=== PATIENT | male | born 1955 | race Caucasian/White ===

== ENCOUNTER 2017-02-03 15:34 | Inpatient (IN) ==
[2017-02-03] MEDS ORDERED: PATIENT'S OWN MED SUBQ SCH (18:15)
[2017-02-03 19:55] LABS: MANUAL DIFF NEEDED? NO
[2017-02-03 20:01] LABS: BASO% 0.4 % (0.0-0.8); HEMATOCRIT 39.3 % (42.0-52.0); LYMPH# 1.63 X1000 (1.2-3.4); MCH 29.1 PG (27-31); MCHC 33.1 g/dL (33-37); MCV 87.9 FL (81-99); MONO# 1.03 X1000 (0.11-0.59); MONO% 10.7 % (1.7-9.3); MPV 12.1 FL (7.4-10.4); NEUT% 70.9 % (42.2-75.2); PLT 262 X1000 (130-400); RBC 4.47 XMIL (4.7-6.1)
[2017-02-03 20:07] LABS: INR 1.02; PROTIME 10.7 Seconds (9.2-11.7)
[2017-02-03 20:15] LABS: AGAP 14; BUN 24 mg/dL (8-22); CALCIUM 9.5 mg/dL (8.8-10.2); CHLORIDE 97 mmol/L (98-107); COSMO 284; POTASSIUM 3.3 mmol/L (3.5-5.1); SODIUM 138 mmol/L (136-145); TCO2 27 mmol/L (25-35)
[2017-02-03 21:04] LABS: SED RATE 18 mm/hr (0-15)
[2017-02-03] MEDS: TUSSIONEX LIQUID PO SCH (22:28)
[2017-02-03] MEDS: SPORANOX PO SCH (22:28)
[2017-02-03 22:37] LABS: URINE MICRO REVIEW NEEDED? NO; URINE SOURCE VOIDED
[2017-02-03] MEDS: POTASSIUM CHLORIDE 20 MEQ/SWI 20 MEQ/100 ML IVPB IV SCH (22:37)
[2017-02-03] MEDS: NS 1,000 ML IV SCH (22:38)
[2017-02-03 22:40] LABS: BILIRUBIN URINE NEGATIVE (NEGATIVE); BLOOD URINE NEGATIVE (NEGATIVE); COLOR YELLOW; GLUCOSE URINE 150 mg/dL (NEGATIVE); LEUKOCYTES URINE NEGATIVE (NEGATIVE); NITRITE URINE NEGATIVE (NEGATIVE); PROTEIN URINE NEGATIVE (NEGATIVE); TURBIDITY URINE CLEAR (CLEAR); UROBILINOGEN URINE NORMAL (NORMAL)
[2017-02-03 22:41] LABS: UR EPITHELIAL CELLS <10 /HPF (<10); URINE BACTERIA NEGATIVE /HPF; URINE RBC <10 /HPF (<10); URINE WBC <10 /HPF (<10)
[2017-02-04] MEDS: POTASSIUM CHLORIDE 20 MEQ/SWI 20 MEQ/100 ML IVPB IV SCH (00:59)
--- NOTE | 2017-02-04 03:43 | HISTORY AND PHYSICAL ---
CHIEF COMPLAINT: High blood sugar, low-grade fever, cough. HISTORY OF PRESENT ILLNESS: He is a 52-year-old white gentleman, evaluated as an outpatient for the last 2 weeks. He has bilateral lung nodules and previous workup was negative for malignancy. Treated for 1 year with Sporanox. After stopping the medications, the patient had relapse of the lung nodules. He has some cough and low-grade fever. He was started back on Sporanox per b.i.d. The lung nodules on the right side were resolving, but, however, left mid lung lesion is increasing in size, close to 3 cm. Despite antifungal treatment, lesion is increasing. Basically admitted to the hospital for rule out malignancy. He also has insulin pump, blood sugars 400. He also has a low potassium. Basically, admitted to the hospital with IV fluids, control the diabetes, replace the potassium and get the lung biopsy in the morning. The patient has also consulted with Alton Chavez MD. 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 PAST SURGICAL HISTORY: None. MEDICATIONS: Lisinopril/hydrochlorothiazide 20/12.5 daily, gabapentin 300 daily , insulin pump, Sporanox 200 p.o. b.i.d., Tussionex as needed. ALLERGIES: Norvasc due to edema. SOCIAL HISTORY: Three children, , retired from [employer], lives in [place]. No smoking. No alcohol. FAMILY HISTORY: Father of colon cancer at 73. Mom of old age. HEALTH MAINTENANCE: Physical exam April 2016. Patient refusing vaccinations and colonoscopy. REVIEW OF SYSTEMS: HEENT: No headache. No vision problem. No earache. No sore throat. Neck: No goiter. No lymphadenopathy. No bruit. Cardiopulmonary: Coughing. No chest pain, shortness of breath, PND, orthopnea. GI: No nausea, vomiting, abdominal pain. : No history of hesitancy, frequency. No swelling of legs. No joint pains. Neurologic: No focal symptoms or weakness or seizures. 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 PHYSICAL EXAMINATION: VITAL SIGNS: He is afebrile. Vitals are stable. 6 feet 2, 197 pounds. HEENT: Exam within normal limits. NECK: Supple. No lymphadenopathy. No goiter. No bruits over the carotids. CHEST: Clear to auscultation. HEART: Sounds are regular. ABDOMEN: Belly is soft, nontender. Good bowel sounds. No masses palpable. RECTAL: Deferred. EXTREMITIES: Pulses are palpable. Decreased sensory exam. No signs of gangrene. NEUROLOGIC: No obvious focal deficits. INVESTIGATIONS: CBC: White cell count 9.6, hematocrit 39, platelets 262,000. PT/INR is normal. SMA7: Sodium 138, potassium 3.3, chloride 97, BUN 24, creatinine 0.9, glucose 167, CRP was 13. Chest x-ray: Increasing of left lung nodule. Please see the CT of the chest which was done as an outpatient last week. ASSESSMENT AND PLAN: 1. A 62-year-old white male admitted to the hospital with a cough, fever and worsening of the left lung nodule despite antifungal treatment. Plan is rule out malignancy. Computed tomography lung biopsy. Dr. Alton Chavez consult. 2. Type 1 diabetes, on insulin pump. 3. Hypokalemia. Replace the potassium. 4. Reconcile home medications. I discussed with the patient and the family the plan of care and we will follow up. cc: John Jennings MD MTDD
[2017-02-04] MEDS ORDERED: D50W SYRINGE IV ONE (05:31)
--- NOTE | 2017-02-04 06:29 | Diag Imaging Result Document ---
PROCEDURE NAME: CHEST-2 VIEWS - 02/03/2017 FRONTAL AND LATERAL CHEST, 2 VIEWS: FINDINGS: There is a mass in the left lower lobe. The heart is not enlarged. The pulmonary vessels are small. No pleural effusions. Apparent scarring in the mid right lung. IMPRESSION: Left lower lobe mass.
[2017-02-04] MEDS ORDERED: PRINZIDE 20/12.5MG PO SCH (09:00)
[2017-02-04] MEDS ORDERED: NEURONTIN PO SCH (09:00)
--- NOTE | 2017-02-04 10:06 | PROGRESS NOTE ---
DATE: 02/04/2017 SUBJECTIVE: The complains of cough. He has been on NPO and IV fluids. REVIEW OF SYSTEMS: None reported. PHYSICAL EXAMINATION: Vital Signs: Stable. HEENT Exam: Within normal limits. Neck: Supple. No lymphadenopathy. Chest: Clear. Heart: Sounds are regular. Rest of the exam is benign. INVESTIGATIONS: CBC, white cell count 9.6, hematocrit 39, platelets 262,000. INR is normal. Blood sugar 69. ASSESSMENT AND PLAN: 1. Left lung mass worsening despite antifungal treatment. Discussed with Alton Chavez MD, as well as Dr. Gaspar who is planning to do CT-guided biopsy today, and based on that, further recommendations will be followed. 2. Continue present medical therapy. Level of documentation is 25 minutes. cc: John Jennings MD
[2017-02-04] MEDS: TUSSIONEX LIQUID PO SCH (11:27)
[2017-02-04] MEDS: NS 1,000 ML IV SCH (11:28)
[2017-02-04] MEDS: SPORANOX PO SCH (11:28)
--- NOTE | 2017-02-04 12:39 | Diag Imaging Result Document ---
PROCEDURE NAME: CHEST-2 VIEWS - 02/04/2017 INSPIRATORY AND EXPIRATORY FRONTAL RADIOGRAPH OF THE CHEST, 2 VIEWS: COMPARISON: 02/03/2017. FINDINGS: There is no evidence of pneumothorax status post left lung biopsy. The known left mid lung zone mass is stable. There are no new consolidations. Cardiac silhouette is stable. IMPRESSION: No evidence of pneumothorax status post left lung biopsy; an otherwise stable chest.
--- NOTE | 2017-02-04 13:25 | Diag Imaging Result Document ---
PROCEDURE NAME: CT GUIDED BIOPSY LUNG - 02/04/2017 CT-GUIDED LEFT LUNG BIOPSY: COMPARISON: CT chest dated 02/01/2017. FINDINGS: Risks, benefits, and alternatives were discussed with the patient, and informed consent was obtained. The patient was prepped and draped in sterile fashion and local anesthesia was achieved with 1% lidocaine solution. Using CT guidance, a coaxial biopsy needle system was used to obtain four 1.3 cm core biopsies of the known mass in the superior aspect of the left lower lobe. There were no known complications. A chest radiograph is to follow. IMPRESSION: Technically successful CT-guided left lung biopsy.
--- NOTE | 2017-02-04 14:16 | CONSULTATION ---
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 He was treated with Sporanox, and nodules on the right side of his lung have cleared. However there is an increasing mass on the left lung which has been enlarging despite the patient being on itraconazole. RECOMMENDATIONS: I agree with decision to perform a percutaneous biopsy of the mass. DISCUSSION/PRESENT ILLNESS: The patient previously had been worked up for the etiology of lung nodules. One of the lung nodules was biopsied and it showed necrotizing granulomatous inflammation. No organisms were seen on special stain and all serologic and antigen tests for fungi were negative. The patient however did respond well to itraconazole. The patient stopped his itraconazole for a while and then restarted it. The lesions that were previously in the right lung appeared to have cleared but the left lung has developed an increasing lung mass which is to be biopsied today. As far as symptoms go, the patient mainly is having had dyspnea on exertion. He is not coughing much. He has not had any fever or chills. In the past month he has lost 7 pounds. The patient's CBC shows a white count of 9600, hemoglobin 13, and platelet count 262,000. Creatinine 0.9. GFR is greater than 60. Urinalysis showed no white cells or bacteria. Urine culture is pending. PAST MEDICAL HISTORY/REVIEW OF SYSTEMS: Eyes and ears: The patient has blurred vision in the right eye. This has been a long-term problem for him. His hearing is okay. Neck: No stiffness. Respiratory: As mentioned above, the patient has an increasing left lung mass in size. He has dyspnea on exertion. He is not coughing and he has not brought up any blood- tinged sputum. Cardiac: No chest pain or palpitations. GI: No nausea, vomiting, or diarrhea. : The patient does have difficulty passing his urine. This has been a long-term problem. Neurologic: No motor or sensory loss. Endocrine: The patient does have diabetes but not thyroid disease. Infectious disease: Positive for lung nodules. Please see the discussion above about them. Negative for UTI. PREVIOUS HOSPITALIZATIONS AND OPERATIONS: Thorascopic lung biopsy and fine needle lung aspirate. MEDICAL DISEASES: Diabetes mellitus, hypertension. 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 FAMILY HISTORY: Positive for diabetes mellitus, hypertension and cancer. SOCIAL HISTORY: [place] He is . He has dogs for pets. He is retired from working at [employer]. The patient stopped smoking in 2008. He does not drink alcoholic beverages or abuse drugs. PHYSICAL EXAMINATION: Vital Signs: Temperature is 98.1 degrees, pulse 59, respiration is 18, blood pressure 149/68. General: This is a fairly healthy-appearing, middle- aged male who is in no acute distress. Head, eyes, ears, nose, and throat: He can hear my spoken words and see near objects. In the mouth there were no white patches. Neck: No meningismus. Lungs: Clear to auscultation. Cardiovascular: Regular heart rate. Abdomen: Soft, without masses or tenderness. Extremities: No edema. The peripheral pulses are palpable. Neurologic: Patient is awake. He can move his extremities. There is no tremor. His sensation is intact to touch. His memory as regarding his medical history is slightly diminished. Integument: No rash noted. Thank you for the consult. cc: MD John Dubon MD MTDD
[2017-02-04 14:17] VITALS: BP 123/72
== END 2017-02-04 18:25 | disposition home or self-care (01) ==
LOC: DIRADM 15:34 → 3N 16:27
PROVIDERS: ADMIT Internal Medicine; ATTEND Internal Medicine

== ENCOUNTER 2019-11-06 15:13 | Inpatient (IN) ==
[2019-11-06] MEDS ORDERED: NS 1,000 ML IV ONE (15:47)
[2019-11-06] MEDS ORDERED: HUMULIN R IV ONE ×2 (15:47→18:29)
[2019-11-06] MEDS ORDERED: D50W SYRINGE IV PRN ×4 (15:47→18:29)
[2019-11-06] MEDS ORDERED: MAGNESIUM SULFATE 2 GM/S.W.I. 2 GM/50 ML IVPB IV PRN ×2 (15:47→17:23)
[2019-11-06] MEDS ORDERED: SODIUM PHOSPHATE 30 MMOL in D5W 250 ML IV PRN ×2 (15:47→17:23)
--- NOTE | 2019-11-06 16:05 | PROVIDER DOCUMENTATION ---
HPI-General Adult - General Chief Complaint: DKA ALERT Stated Complaint: DIABETIC Time Seen by Provider: 11/06/19 15:38 Source: patient Allergies/Adverse Reactions: Patient Allergies Allergy/AdvReac Type Severity Reaction Status Date / Time No Known Allergies Allergy Verified 11/06/19 15:43 Home Medications: Home Medication List Medication Instructions Recorded Confirmed Last Taken Type Gabapentin 300 mg PO DAILY 05/06/14 08/22/19 08/22/19 00:00 History Lisinopril/Hydrochlorothiazide 1 each PO DAILY 05/06/14 08/22/19 08/22/19 00:00 History [Lisinopril-Hctz 20-12.5 mg Tab] Subcutaneous Insulin Pump [Insulin 1 each MC DIRECTED 05/06/14 08/22/19 08/22/19 00:00 History Pump] Itraconazole [Sporanox] 200 mg PO BID #180 capsule 09/10/15 08/22/19 08/22/19 00:00 Rx Chlorthalidone 50 mg PO DAILY 05/16/19 08/22/19 08/22/19 00:00 History Potassium Chloride [Klor-Con 10] 20 meq PO BID 05/16/19 08/22/19 08/22/19 00:00 History - History of Present Illness -Gen Adult Nature of Presenting Problems: 64 yo M, hx of DM, HTN, presents with 4-5 oliva hx of general malaise, elevated and uncontrollable BG in the setting of a steroid shot and unresponsive to his curent insulin regime, as well as recent UTI and URI. Pt received a steroid shot in the left eye on Tuesday; he apparently was not warned of the effects on his BG; he began to experience elevations in BG that evening, reaching a high of 416 when he is typically 127 or thereabouts post-prandial. Pt also was dx with URI and UTI, and has been more listless, with poor appetite, nausea, and vomiting x 2 episodes, contents of which were dark. Review of Systems - Adult - REVIEW OF SYSTEMS - ADULT Constitutional: reports: see HPI Eyes: reports: no symptoms reported Ears, Nose, Mouth & Throat: reports: no symptoms reported Cardiovascular: reports: no symptoms reported Respiratory: reports: see HPI Gastrointestinal: reports: see HPI Genitourinary: reports: no symptoms reported Musculoskeletal: reports: no symptoms reported Integumentary: reports: no symptoms reported Neurological: reports: no symptoms reported Psychiatric: reports: no symptoms reported Endocrine: reports: no symptoms reported Past History - Adult - PAST MEDICAL HISTORY-ADULT Review of Records: reports: Nursing Assessment Review Major Childhood Illnesses: reports: denies history Cardiovascular: reports: HTN Endocrine/Immune: reports: Diabetes Diabetes controlled by:: Insulin Dependent - FAMILY HISTORY Family History: reviewed, not pertinent - SOCIAL HISTORY Smoking: non-smoker Living Situation: family Physical Exam-General - PHYSICAL EXAM-ADULT Initial Vital Signs Reviewed: Yes - CONSTITUTIONAL General Appearance: alert, mild distress - EYES Eyes: PERRL/EOMI - HEAD, EARS, NOSE, MOUTH & THROAT HENMT: normocephalic/atraumatic, moist mucous membranes - RESPIRATORY Respiratory: chest non-tender, lungs clear, normal breath sounds - CARDIOVASCULAR Cardiovascular: regular rate, rhythm - GASTROINTESTINAL (ABDOMEN) Abdominal Exam: normal bowel sounds, non tender, soft - SKIN Integumentary: normal color, normal turgor, warm/dry - NEUROLOGIC Neurologic: no motor/sensory deficits. negative: facial droop, focal weakness - PSYCHIATRIC Psych/Mental Status: normal mood/affect, oriented x 3 Progress - PLAN OF CARE/RESULTS Progress/Plan/Lab Results: Vital Signs - 8 hr 11/06/19 15:28 Temperature 97.5 F L Pulse Rate 58 L Respiratory Rate 19 Blood Pressure 162/63 O2 Sat by Pulse Oximetry 99 Laboratory Results - last 24 hr 11/06/19 15:33 POC Glucose 449 H D Orders Category Date Time Status Cardiac Monitoring DIRECTED Care 11/06/19 15:44 Active Cardiac Monitoring DIRECTED Care 11/06/19 15:47 Ordered ED: Urine Bedside NOW Care 11/06/19 15:47 Ordered FSBS/Accucheck Result Q15M Care 11/06/19 15:47 Ordered FSBS/Accucheck Result Q1H Care 11/06/19 15:44 Active FSBS/Accucheck Result Q1H Care 11/06/19 15:47 Ordered Hypoglycemia/FSBS <50 or Range of 50-70 PRN Care 11/06/19 15:47 Ordered Notify Physician ORDERED Care 11/06/19 15:47 Ordered Saline Loc DIRECTED Care 11/06/19 15:47 Ordered Saline Loc NOW Care 11/06/19 15:44 Active Saline Loc NOW Care 11/06/19 15:47 Ordered Vital Signs Order Q1H Care 11/06/19 15:44 Active Vital Signs Order Q1H Care 11/06/19 15:47 Ordered ABG [RESP] Routine Lab 11/06/19 15:44 Ordered ACETONE SERUM [CHEM] Stat Lab 11/06/19 15:44 Uncollected CBC WITH NO DIFF [HEME] Stat Lab 11/06/19 15:44 Uncollected CK PROFILE [SP CHEM] Stat Lab 11/06/19 15:44 Uncollected COMPREHENSIVE METABOLIC PANEL [CHEM] Stat Lab 11/06/19 15:44 Uncollected LACTATE, PLASMA [CHEM] Stat Lab 11/06/19 15:44 Uncollected MAGNESIUM [CHEM] Stat Lab 11/06/19 15:44 Uncollected PHOSPHORUS [CHEM] Stat Lab 11/06/19 15:44 Uncollected TROPONIN T HIGH SENSITIVITY Stat Lab 11/06/19 15:44 Uncollected URINALYSIS [URINALYSIS] Stat Lab 11/06/19 15:44 Uncollected URINE DRUG SCREEN Stat Lab 11/06/19 15:44 Uncollected 0.9% Sodium Chloride Inj [Ns] 1,000 ml Med 11/06/19 16:00 Ordered IV 500 mls/hr Dextrose 50% Syringe [D50w Syringe] Med 11/06/19 15:47 Ordered 25 ml IV PRN PRN Dextrose 50% Syringe [D50w Syringe] Med 11/06/19 15:47 Ordered 50 ml IV PRN PRN Insulin Human Regular [Humulin R] Med 11/06/19 15:47 Once 7.7 unit IV ONCE ONE Magnesium Sulfate 2 gm/S.w.i. Med 11/06/19 15:47 Ordered 2 gm in 50 ml IV ONCE PRN Ns 1000 ml IV Bolus X1 Med 11/06/19 15:47 Ordered 0.9% Sodium Chloride Inj [Ns] 1,000 ml IV 999 mls/hr Sodium Phosphate 30 mmol Med 11/06/19 15:47 Ordered Dextrose 5%-Water Inj [D5w] 250 ml IV ONCE PRN Hypoglycemia Stat Oth 11/06/19 15:47 Ordered EKG [EKG] Routine Ther 11/06/19 15:44 Ordered EKG [EKG] Routine Ther 11/06/19 15:47 Ordered Pt in DKA - with AG 32, lactate 3.8, Glu 463, high sensitivity troponin 223 (no accompanying EKG changes) - spoke with hospitalist RN [id number] - pt to be admitted for further management. Pt and family made aware. Result Diagrams: 11/06/19 15:54 11/06/19 15:54 - EKG 1 Time of EKG reading by physician:: 16:15 EKG Read and Signed by:: Cesia Wu EKG Interpretation (*Must complete 3 of following elements*): Abnormal Rate: 62 Rhythm: sinus [place]: normal QRS: normal MA Interval: normal ST Wave: non-specific ST changes Prior EKG Comparison: changes noted (in comparison to 2014 - possible left atrial enlargement, ST and T wave abnormality) Comments: possible left atrial enlargement - CONSULTS/PCP/HOSPITALIST Notification #1 *Consult/PCP/Hospitalist*: Leana Time Discussed: 17:00 Consult Disposition: Admit Departure - Departure Date of Disposition Decision: 11/06/19 Time of Disposition Decision: 17:20 DIAGNOSIS: DKA, type 1 Qualifiers: Diabetes mellitus complication detail: without coma Qualified Code(s): E10.10 - Type 1 diabetes mellitus with ketoacidosis without coma Disposition: ADMITTED INPATIENT 09 Certified Medical Emergency: Emergent Condition: Stable Referrals and Follow-Ups: None,PCP [Primary Care Provider] - - Critical Care Note This patient required my direct & personal management of CC.: No Attestation - Physician/ TEQUILA Attestation Patient care was provided by Advanced Practice Provider:: No The physician spent face to face time with patient:: Yes Advanced Practice Provider documentation review:: Supervising physician onsite and consulted in the evaluation and care of this patient. The physician did have a face to face encounter with the patient.
[2019-11-06 16:08] LABS: ALLEN TEST YES; BE -9.8 mmoll (-3.0-3.0); BLOOD TYPE ARTERIAL; HCO3-(ACT) 17.2 mmoll (20.0-26.0); METHB 1.6 % (0.0-1.5); O2(CT) 19.3 mL/dL (15.0-23.0); PCO2(98.6) 31 mmHg (35-45); PO2(98.6) 98 mmHg (60-100); SAMPLE BLOOD; SAO2 98.5 % (95.0-100.0); THB 14.4 g/dL (11.5-17.4)
[2019-11-06 16:09] LABS: MODALITY ROOM AIR
--- NOTE | 2019-11-06 16:19 | EKG Report ---
Test Performed on : 11/06/2019 4:15:10 PM Test Reason : Hyperglycemia Blood Pressure : / mmHG Vent. Rate : 062 BPM Atrial Rate : 062 BPM P-R Int : 166 ms QRS Dur : 080 ms QT Int : 428 ms P-R-T Axes : 079 020 150 degrees QTc Int : 434 ms Normal sinus rhythm. Possible Left atrial enlargement ST & T wave abnormality, consider lateral ischemia Abnormal ECG When compared with ECG of 06-MAY-2014 18:50, Nonspecific T wave abnormality now evident in Inferior leads T wave inversion now evident in Anterolateral leads Unconfirmed Result
[2019-11-06 16:27] LABS: HEMATOCRIT 45.9 % (42.0-52.0); HEMOGLOBIN 14.9 g/dL (14.0-18.0); MCH 28.8 PG (27-31); MCHC 32.5 g/dL (33-37); MCV 88.8 FL (81-99); MPV 14.3 FL (7.4-10.4); RBC 5.17 XMIL (4.7-6.1); RDW 16.3 % (11.5-14.5); WBC 10.57 X1000 (4.8-10.8)
[2019-11-06 16:33] LABS: ACETONE SERUM MODERATE (NEGATIVE)
[2019-11-06] MEDS ORDERED: ASPIRIN PO ONE (16:41)
[2019-11-06 16:51] LABS: AGAP 32; ALB/GLOB RATIO 1.4; ALBUMIN 4.2 g/dL (3.5-5.0); ALKALINE PHOSPHATASE 86 U/L (32-122); BUN 46 mg/dL (8-22); CALCIUM 9.8 mg/dL (8.8-10.2); CHLORIDE 91 mmol/L (98-107); CK PROFILE 195 U/L (24-204); COSMO 310; CREATININE 1.5 mg/dL (0.7-1.2); ESTIMATED GFR 47; GOT 25 U/L (10-34); GPT 22 U/L (10-44); MAGNESIUM 2.6 mg/dL (1.5-2.7); PHOSPHORUS 3.7 mg/dL (2.7-4.5); POTASSIUM 3.8 mmol/L (3.5-5.1); SODIUM 139 mmol/L (136-145); TCO2 16 mmol/L (25-35); TOTAL PROTEIN 7.1 g/dL (6.3-8.3)
[2019-11-06 16:55] LABS: GLUCOSE 463 mg/dL (70-104)
[2019-11-06] MEDS ORDERED: LR 1,000 ML IV ONE (16:59)
[2019-11-06 17:14] LABS: URINE SOURCE CLEAN CATCH
[2019-11-06 17:19] LABS: BILIRUBIN URINE NEGATIVE (NEGATIVE); BLOOD URINE TRACE (NEGATIVE); COLOR YELLOW; GLUCOSE URINE >1000 mg/dL (NEGATIVE); KETONE URINE 150 mg/dL (NEGATIVE); LEUKOCYTES URINE NEGATIVE (NEGATIVE); NITRITE URINE NEGATIVE (NEGATIVE); PH URINE 5.5; PROTEIN URINE TRACE mg/dL (NEGATIVE); SP GRAVITY URINE 1.024; TURBIDITY URINE CLEAR (CLEAR); UR EPITHELIAL CELLS <10 /HPF (<10); URINE BACTERIA NEGATIVE /HPF; URINE RBC <10 /HPF (<10); URINE WBC <10 /HPF (<10); UROBILINOGEN URINE NORMAL (NORMAL)
[2019-11-06] MEDS ORDERED: POTASSIUM CHLORIDE 20 MEQ/SWI 20 MEQ/100 ML IVPB IV PRN (17:23)
[2019-11-06] MEDS ORDERED: SODIUM BICARBONATE 8.4% 100 MEQ in STERILE WATER INJ. 500 ML IV PRN (17:23)
[2019-11-06] MEDS ORDERED: TYLENOL PO PRN (17:23)
[2019-11-06] MEDS ORDERED: POTASSIUM CHLORIDE 40 MEQ/SWI 40 MEQ/100 ML IVPB IV PRN (17:23)
[2019-11-06] MEDS ORDERED: ZOFRAN IV PRN (17:23)
[2019-11-06] MEDS ORDERED: D5 NS 1,000 ML IV PRN (17:23)
[2019-11-06] MEDS ORDERED: HUMULIN R 100 UNIT in NS 100 ML IV SCH ×2 (17:30→18:30)
[2019-11-06] MEDS ORDERED: SODIUM CHLORIDE 0.9% INJ SCH (17:30)
[2019-11-06 17:35] LABS: UR AMPHETAMINES QUAL NONE DETECTED (NONE DETECT); UR BARBITUATES QUAL NONE DETECTED (NONE DETECT); UR BENZODIAZEPIN QUAL NONE DETECTED (NONE DETECT); UR CANNABINOIDS QUAL NONE DETECTED (NONE DETECT); UR COCAINE QUAL NONE DETECTED (NONE DETECT); UR METHADONE QUAL NONE DETECTED (NONE DETECT); UR OPIATES QUAL NONE DETECTED (NONE DETECT); UR OXYCODONE QUAL NONE DETECTED (NONE DETECT); UR PCP QUAL NONE DETECTED (NONE DETECT)
[2019-11-06] MEDS ORDERED: APRESOLINE IV PRN (18:02)
--- NOTE | 2019-11-06 18:10 | Diag Imaging Result Doc PS360 ---
CHEST-PORTABLE - 11/06/2019 INDICATION: SOB COMPARISON: 08/22/2019 FINDINGS: Stable extensive surgical suture lines in the right lung. Lung volumes are much lower. Grossly stable nodular density in the right lung base. No infiltrates or edema. No pneumothorax or pleural effusion. Heart size is top normal. IMPRESSION: Lower lung volumes, otherwise no change from prior. Electronically signed by Jose L Anand 11/06/2019 6:08 PM
[2019-11-06] MEDS: NS 1,000 ML IV SCH ×2 (18:11→22:40)
[2019-11-06] MEDS ORDERED: POTASSIUM CHLORIDE 20% LIQUID PO PRN (18:29)
[2019-11-06] MEDS: POTASSIUM CHLORIDE 10% LIQUID PO PRN ×2 (18:40→23:14)
[2019-11-06] MEDS: APRESOLINE PO SCH (20:20)
[2019-11-06] MEDS: MAXIPIME 1 GM in NS 50 ML IV SCH (20:20)
[2019-11-06] MEDS: NORVASC PO SCH (20:20)
[2019-11-06 21:08] LABS: CALCIUM 9.2 mg/dL (8.8-10.2); CREATININE 1.3 mg/dL (0.7-1.2); MAGNESIUM 2.4 mg/dL (1.5-2.7); PHOSPHORUS 1.7 mg/dL (2.7-4.5); POTASSIUM 3.8 mmol/L (3.5-5.1)
--- NOTE | 2019-11-06 22:53 | HISTORY AND PHYSICAL ---
THE PATIENT'S HOSPICE OFFICE COORDINATOR: Dr. Willie Stephenson in [place]. CHIEF COMPLAINT: "I have been feeling sick since Tuesday after I received a steroid injection to my left eye." HISTORY OF PRESENT ILLNESS: Mr. Villalobos is a 64-year-old male with a history of insulin-dependent diabetes mellitus on an insulin pump, history of histoplasmosis and hypertension who presented to the ER today with a chief complaint of increasing shortness of breath, persistent nausea and vomiting and a poor appetite, as well as markedly elevated blood sugars. The patient reports that he saw his bsw on Tuesday at which time he received a steroid injection to his left eye. The patient states that as soon as he left the eye doctor appointment, he started to feel bad. He reports that he started suffering from upper respiratory symptoms to include runny nose, cough and shortness of breath. He said that was then followed by persistent nausea and vomiting and a poor appetite as well as low energy. The patient received a prescription for some oral antibiotic on November 03, which he started taking; however, his symptoms did not improve. The patient's blood sugars were as high as 460 at home. Upon arrival to the ER today, the patient was noted to be in DKA with an anion gap of 32, as well as moderate acetone. The patient was immediately started on aggressive IV fluid hydration and the diabetic ketoacidosis protocol was ordered. PAST MEDICAL HISTORY: 1. 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 Insulin-dependent diabetes mellitus on an insulin pump. 3. Hypertension. 4. BPH. 5. Hyperlipidemia. PAST SURGICAL HISTORY: None. FAMILY HISTORY: Reviewed and noncontributory. SOCIAL HISTORY: The patient denies any tobacco, alcohol or illicit drug use. The patient is and lives at home with his family. ALLERGIES: No known drug allergies. HOME MEDICATIONS: 1. Gabapentin 300 mg oral at bedtime. 2. Humalog via the insulin pump. 3. Hydralazine 50 mg oral twice a day. 4. Itraconazole 100 mg daily. REVIEW OF SYSTEMS: A 12-point review of systems has been performed. Please refer to the history of present illness for pertinent positives and negatives. PHYSICAL EXAMINATION: VITAL SIGNS: Temperature 98.6 degrees, blood pressure 173/68, heart rate 61, respirations 18, O2 saturations 100% on room air. GENERAL: This is a chronically ill-appearing elderly male lying on the stretcher in no acute distress. HEART: S1, S2. Normal. Bradycardic. SKIN: No rashes, no lesions. Normal capillary refill. HEENT: Normocephalic. PERRLA, EOMI. Oral mucosa is moist. Trachea is midline. NECK: Supple. No JVD. No lymphadenopathy. HEART: S1, S2 normal. Bradycardic. LUNGS: Equal air entry bilaterally. No wheezing. No rales. No rhonchi. ABDOMEN: Positive bowel sounds. Soft, nontender, nondistended. EXTREMITIES: No edema, no cyanosis, no calf tenderness. NEUROLOGIC: The patient is alert and oriented x4. No focal neurologic deficits noted. Cranial nerves 2-12 intact. LABS: White blood cell count 10, hemoglobin 14, hematocrit 45, platelets 274,000. ABG pH of 7.3, pCO2 31, PO2 98, bicarb 17. Sodium 139, potassium 3.8, chloride 91, CO2 16, BUN 46, creatinine 1.5, and anion gap of 32. Blood glucose 463. Phosphorus 3.7. Troponin 223. Lactate 3.8. Chest x-ray shows nodular density in the right lung base. ASSESSMENT AND PLAN: 1. Diabetic ketoacidosis. The patient has been started on diabetic ketoacidosis protocol to include IV fluids as well as an insulin drip. We will monitor the patient's laboratory studies every 4 hours until the anion gap has closed. The patient will be allowed to have ice chips. He will be NPO. 2. Elevated troponin. The patient denies having any chest pain. We will trend out the cardiac enzymes and do repeat electrocardiograms. We will also order an echocardiogram to be done tomorrow. The patient did receive aspirin. 3. Upper respiratory tract infection. Continue on antibiotic therapy. 4. Histoplasmosis. Aware. Continue on itraconazole. 5. Uncontrolled hypertension. We will adjust the patient's antihypertensive regimen. 6. Gastrointestinal prophylaxis. The patient is on IV Protonix. 7. Deep vein thrombosis prophylaxis. We will start the patient on Lovenox. cc: MD MAX Krause
[2019-11-06 22:57] LABS: CALCIUM 9.1 mg/dL (8.8-10.2); CREATININE 1.3 mg/dL (0.7-1.2); MAGNESIUM 2.3 mg/dL (1.5-2.7); PHOSPHORUS 1.2 mg/dL (2.7-4.5); POTASSIUM 3.6 mmol/L (3.5-5.1)
[2019-11-07] MEDS: NS 1,000 ML IV SCH ×4 (00:45→17:44)
[2019-11-07 02:29] LABS: AGAP 13; BUN 38 mg/dL (8-22); CALCIUM 8.9 mg/dL (8.8-10.2); CHLORIDE 107 mmol/L (98-107); COSMO 297; CREATININE 1.1 mg/dL (0.7-1.2); ESTIMATED GFR > 60; GLUCOSE 159 mg/dL (70-104); MAGNESIUM 2.2 mg/dL (1.5-2.7); PHOSPHORUS 1.1 mg/dL (2.7-4.5); POTASSIUM 2.9 mmol/L (3.5-5.1); SODIUM 143 mmol/L (136-145); TCO2 23 mmol/L (25-35)
[2019-11-07 05:04] LABS: ALLEN TEST YES; BE 2.9 mmoll (-3.0-3.0); BLOOD TYPE ARTERIAL; HCO3-(ACT) 27.1 mmoll (20.0-26.0); PCO2(98.6) 43 mmHg (35-45); PO2(98.6) 70 mmHg (60-100); SAMPLE BLOOD; pH(98.6) 7.42 (7.35-7.45)
[2019-11-07 05:07] LABS: MODALITY ROOM AIR
[2019-11-07] MEDS: PROTONIX IV SCH (06:16)
[2019-11-07 06:23] LABS: BASO# 0.05 X1000 (0.0-0.2); BASO% 0.6 % (0.0-0.8); EOS# 0.05 X1000 (0.0-0.7); EOS% 0.6 % (0.0-10.0); HEMATOCRIT 38.6 % (42.0-52.0); HEMOGLOBIN 12.6 g/dL (14.0-18.0); LYMPH# 1.42 X1000 (1.2-3.4); LYMPH% 16.5 % (20.5-51.1); MCH 28.4 PG (27-31); MCHC 32.6 g/dL (33-37); MCV 86.9 FL (81-99); MONO# 1.02 X1000 (0.11-0.59); MONO% 11.9 % (1.7-9.3); NEUT# 6.05 X1000 (1.4-6.5); NEUT% 70.4 % (42.2-75.2); PLT 224 X1000 (130-400); RBC 4.44 XMIL (4.7-6.1); RDW 15.3 % (11.5-14.5); WBC 8.59 X1000 (4.8-10.8)
[2019-11-07 06:34] LABS: AGAP 12; BUN 36 mg/dL (8-22); CALCIUM 8.9 mg/dL (8.8-10.2); CHLORIDE 107 mmol/L (98-107); COSMO 300; ESTIMATED GFR > 60; GLUCOSE 146 mg/dL (70-104); MAGNESIUM 2.2 mg/dL (1.5-2.7); PHOSPHORUS 1.3 mg/dL (2.7-4.5); SODIUM 145 mmol/L (136-145); TCO2 26 mmol/L (25-35)
[2019-11-07] MEDS ORDERED: LEVEMIR SUBQ ONE (06:39)
[2019-11-07] MEDS ORDERED: POTASSIUM PHOSPHATE 40 MMOL in NS 250 ML IV ONE (07:15)
[2019-11-07] MEDS: APRESOLINE PO SCH ×2 (07:59→21:59)
[2019-11-07] MEDS: MAXIPIME 1 GM in NS 50 ML IV SCH ×2 (07:59→21:59)
[2019-11-07] MEDS: NORVASC PO SCH ×2 (07:59→21:57)
[2019-11-07] MEDS: HUMULIN R SUBQ SCH ×5 (08:00→21:59)
[2019-11-07] MEDS: ASPIRIN PO SCH (08:00)
[2019-11-07] MEDS: PRINIVIL PO SCH (08:13)
--- NOTE | 2019-11-07 08:16 | EKG Report ---
Test Performed on : 11/07/2019 06:11:30 AM Test Reason : elevated troponin Blood Pressure : / mmHG Vent. Rate : 052 BPM Atrial Rate : 101 BPM P-R Int : 154 ms QRS Dur : 084 ms QT Int : 460 ms P-R-T Axes : 058 019 249 degrees QTc Int : 427 ms Critical Test Result: AV Block Sinus tachycardia. with 2nd degree AV block. with 2:[address] & T wave abnormality, consider anterolateral ischemia Abnormal ECG When compared with ECG of 06-NOV-2019 16:15, (Unconfirmed) Sinus rhythm. is now with 2nd degree AV block. Confirmed by Feliberto CASTILLO, Piter Lanza ([id number]) on 11/08/2019 2:33:41 PM
[2019-11-07] MEDS ORDERED: LOVENOX SUBQ SCH ×2 (09:00→21:00)
[2019-11-07] MEDS ORDERED: LOPRESSOR PO SCH (09:00)
[2019-11-07] MEDS ORDERED: LOVENOX SUBQ ONE (10:15)
--- NOTE | 2019-11-07 11:01 | CARDIOLOGY CONSULTATION ---
DATE: 11/07/2019 REASON FOR CONSULTATION: Cardiology was consulted for non-Q-wave myocardial infarction. HISTORY OF PRESENT ILLNESS: Mr. Villalobos is a 64-year-old gentleman with history of insulin-dependent diabetes on insulin pump, has history of histoplasmosis and had diabetic retinopathy, underwent a steroid shot last Tuesday by Dr. Briones who is his retina specialist. He has been having fatigue and weakness, complained of having chest discomfort and palpitations and shortness of breath. He also noted his blood sugars were elevated after his steroid injection, had nausea and vomiting as well associated with these symptoms. Came to the emergency room, was admitted. His admission electrocardiogram revealed normal sinus rhythm with nonspecific ST-T changes in the lateral leads. He describes his chest pain as tightness associated with the palpitations. No radiation to the back or down the arms. However, his states that he had at times complained of some upper back pain also. There is no history of dizziness or syncope. The patient was admitted. His blood sugar was 460 upon arrival in the emergency room, noted to be in DKA with an anion gap of 32. He was given IV fluids and diabetic ketoacidosis protocol ordered. REVIEW OF SYSTEM: A 14-point review of systems was done. GI System: Nausea and vomiting associated with some of these symptoms. There is no history of hematemesis or melena. Central nervous system: No focal weakness to suggest a CVA or TIA. Genitourinary System: There is no dysuria or hematuria. PAST MEDICAL HISTORY: 1. Insulin-dependent diabetes on insulin pump. 2. Hypertension. 3. Histoplasmosis. 4. Diabetic retinopathy. 5. Benign prostatic hypertrophy. 6. Hyperlipidemia. HOME MEDICATIONS: Include 1. Hydralazine 50 mg b.i.d. 2. Insulin. 3. Gabapentin. 4. GABINO inhibitors. SOCIAL HISTORY: The patient denies any tobacco or alcohol abuse. PHYSICAL EXAMINATION: Vital Signs: When he was admitted, his blood pressure was 173/68. Blood pressure today 158/56. Neck: Jugular venous pressure was normal. Cardiovascular: First and second heart sounds were heard. There was a systolic murmur in the mitral area. Respiratory System: Normal air entry. There were no crepitations or rhonchi. Abdomen: Soft, obese, nontender. There was no guarding or rigidity. Bowel sounds were heard. Central nervous system: Alert and oriented. Was moving all 4 extremities. Extremities: Revealed no pedal edema. HEENT: Atraumatic. Pupils were equal and reacting to light. LABORATORY EXAMINATION: Revealed sodium 145, potassium 3.0, BUN 36, creatinine 1.0. Cardiac enzymes: Troponin was 223, increased to 281 with a normal lab value of less than 100. WBC 8.50, hemoglobin 12.6, hematocrit 38.6, platelet count of 224. Chest x-ray was unremarkable. ASSESSMENT AND PLAN: 1. Mr. Leo Villalobos is a 64-year-old gentleman with history of hypertension, histoplasmosis, insulin dependent diabetes, hypertension, who is admitted with chest pain and shortness of breath associated with nausea and vomiting, was noted to be in diabetic ketoacidosis. The patient has a non-Q-wave myocardial infarction. No previous cardiac history. He has a systolic murmur as well. We will get an echocardiogram to assess cardiac and valvular function. 2. I will put him on aspirin and plan for a left heart catheterization. Risks, benefits, and alternatives were explained to the patient. Patient is willing to undergo the procedure. 3. Hypertension. Continue with his GABINO inhibitors and he is already on Norvasc. His beta- blockers were not given as he has heart rate varying from 48 to 50 beats per minute. 4. He is a diabetic with non-Q-wave myocardial infarction. We will also put him on lipid- lowering agents with Lipitor 40 mg a day. 5. He was admitted with diabetic ketoacidosis and his blood sugars have stabilized. 6. He has hypokalemia which has been corrected. Thank you for the consult. We will follow hospital course. cc: Tony Orozco MD
[2019-11-07] MEDS ORDERED: ISOPTIN ONE (11:24)
[2019-11-07] MEDS ORDERED: HEPARIN 1000 UNITS/NS 2,000 UNIT/1,000 ML IV.SOLN ONE (11:24)
[2019-11-07] MEDS ORDERED: NS 500 ML ONE (12:59)
[2019-11-07] MEDS ORDERED: CLAVE PUMP SET NO FILTER 12260 ONE (12:59)
[2019-11-07] MEDS ORDERED: CLAVE TWINSITE 32 IN 11959 ONE (12:59)
[2019-11-07] MEDS ORDERED: VERSED ONE (13:08)
[2019-11-07] MEDS ORDERED: DILAUDID ONE (13:08)
--- NOTE | 2019-11-07 14:31 | EKG Report ---
Test Performed on : 11/07/2019 2:23:11 PM Test Reason : s/p heart cath Blood Pressure : / mmHG Vent. Rate : 053 BPM Atrial Rate : 053 BPM P-R Int : 158 ms QRS Dur : 086 ms QT Int : 470 ms P-R-T Axes : 020 013 226 degrees QTc Int : [address] & T wave abnormality, consider lateral ischemia Abnormal ECG When compared with ECG of 07-NOV-2019 06:11, (Unconfirmed) Sinus rhythm. is no longer with 2nd degree AV block. Confirmed by Feliberto CASTILLO, Piter Lanza ([id number]) on 11/08/2019 2:35:28 PM
--- NOTE | 2019-11-07 14:38 | ECHO REPORT ---
ORDER DATE: 11/07/2019 INDICATION: Non ST-elevation DC. FINDINGS: 1. Right atrium appears normal in size. 2. Mild tricuspid regurgitation. 3. Normal RV size and systolic function. 4. No significant pulmonic insufficiency. 5. Severe left atrial enlargement with a volume index of 49. 6. No mitral prolapse. Mild mitral regurgitation. No significant mitral stenosis. 7. Normal LV size, end-diastolic dimension of 4.5 cm. Mild left ventricular hypertrophy with a posterior and interventricular septal wall thickness of 1.1 and 1.2 cm respectively. Normal LV systolic function. Calculated ejection fraction is 60% with no segmental wall motion abnormalities. 8. Aortic valve opens well. It appears trileaflet. I do not believe there is any significant degree of stenosis. 9. The aorta appears normal on visualized segments. 10. No pericardial effusion seen. cc: MD Deirdre De Leon MD
[2019-11-07] MEDS: SPORANOX PO SCH ×2 (15:48→21:58)
--- NOTE | 2019-11-07 20:04 | CARDIAC CATH REPORT ---
PROCEDURE NAME: - INDICATION FOR PROCEDURE: [id number] OH. PROCEDURES PERFORMED: 1. Left heart catheterization. 2. Selective coronary angiography. PROCEDURE IN DETAIL: Mr. Villalobos was brought to the catheterization laboratory in fasting state. Informed consent was obtained. Prepped in the usual fashion. He was anesthetized over the right radial artery. After that, a 5-Finnish sheath was placed via true Seldinger technique. Radial cocktail was administered. Catheters were introduced. Hemodynamic measurements were made in the ascending thoracic aorta. Coronary angiography was performed in multiple views using JL 3.5, AL1 and JR4 catheters. Left heart catheterization was performed using the JR4. At the conclusion of the procedure all sheaths and catheters were removed. TR band was left inflated at 12 cc of air, with good capillary refill, good hemostasis. FINDINGS: 1. The left main originates from the left coronary cusp. It takes off in a superior fashion and has a 20% to 30% ostial lesion. 2. The left anterior descending originates from the left main. There is a midvessel 40% to 50% lesion at the takeoff of a second diagonal branch. Thereafter there are mild diffuse luminal irregularities throughout the remainder of the left anterior descending. There is a first diagonal branch that appears to function more in an obtuse marginal distribution that has 40% to 50% midvessel lesions with scattered vessel mild luminal irregularities. 3. The circumflex originates from the left main. There are diffuse mild luminal irregularities noted throughout this vessel. No clear evidence of obstructive lesions. 4. The right coronary originates from the right coronary cusp. There is a proximal 40% to 50% lesion, late midvessel 20% to 30% lesion and scattered minimal luminal irregularities in the distal vessel as well as the PDA. 5. The aortic blood pressure is 128/47 with a mean of 79. The left ventricular pressure is 143/1 with an LVEDP of 16. ASSESSMENT: Mr. Villalobos is a 64-year-old gentleman who presented with diabetic ketoacidosis and nsl-[id number] myocardial infarction. At this point he does not appear to have any significant flow-limiting lesions requiring intervention. We will continue to treat him medically. The results of the procedure have been discussed with Dr. Orozco. cc: Diomedes Stephenson MD
[2019-11-07] MEDS ORDERED: LIPITOR PO SCH (21:00)
--- NOTE | 2019-11-07 21:39 | PROGRESS NOTE ---
DATE: 11/07/2019 SUBJECTIVE: The patient states that he feels better today. He underwent a heart catheterization this afternoon. OBJECTIVE: Vital Signs: Temperature 97.4 degrees, blood pressure 164/58, heart rate 48, respirations 17, O2 saturation is 98% on room air. General: An elderly male lying in bed, in no acute distress. Heart: S1, S2 normal. Bradycardic. Lungs: Clear to auscultation bilaterally. No wheezing. No rales. No rhonchi. Abdomen: Positive bowel sounds. Soft, nontender, nondistended. Extremities: No edema. No cyanosis. Neurologic: Alert and oriented x4. LABORATORY DATA: Sodium 145, potassium 3, anion gap of 12, BUN 36, creatinine 1, glucose 146, phosphorus 1.3. Troponin 281. ASSESSMENT AND PLAN: 1. Bmi-DQ-rrjncjsda myocardial infarction. The patient had a left heart catheterization done today. Medical management was recommended. Further recommendations as per the quantitative analyst developer. 2. Diabetic ketoacidosis. Resolved. The patient has been transitioned to subcutaneous insulin, sliding scale insulin. 3. Upper respiratory infection. Improved. Continue with the current antibiotic regimen. 4. Histoplasmosis. Continue on itraconazole. 5. Uncontrolled hypertension. Continue to adjust the patient's antihypertensive regimen. 6. Hypokalemia. We will replace the patient's potassium. 7. Hypophosphatemia. We will replace the patient's phosphorus. 8. Physical Therapy has been consulted. cc: Deirdre Murphy MD MTDD
[2019-11-07] MEDS: LEVEMIR SUBQ SCH (21:59)
[2019-11-08] MEDS: HUMULIN R SUBQ SCH ×6 (02:27→23:46)
[2019-11-08] MEDS: NS 1,000 ML IV SCH (03:23)
[2019-11-08] MEDS: PROTONIX IV SCH ×2 (05:32→06:21)
[2019-11-08] MEDS ORDERED: INSULIN PEN NEEDLES ONE (05:50)
[2019-11-08 06:19] LABS: BASO# 0.06 X1000 (0.0-0.2); BASO% 0.8 % (0.0-0.8); EOS% 1.3 % (0.0-10.0); HEMATOCRIT 37.2 % (42.0-52.0); HEMOGLOBIN 12.1 g/dL (14.0-18.0); LYMPH% 15.5 % (20.5-51.1); MCH 28.1 PG (27-31); MCHC 32.5 g/dL (33-37); MCV 86.5 FL (81-99); MONO% 11.7 % (1.7-9.3); MPV 13.7 FL (7.4-10.4); NEUT# 5.46 X1000 (1.4-6.5); NEUT% 70.7 % (42.2-75.2); PLT 192 X1000 (130-400); RDW 15.3 % (11.5-14.5); WBC 7.72 X1000 (4.8-10.8)
[2019-11-08 07:05] LABS: CHOLESTEROL 126 mg/dL (0-200); HDL 51 mg/dL (35-55); LDL 61 mg/dL; TRIGLYCERIDES 69 mg/dL (39-160); VLDL 14 mg/dL
[2019-11-08 07:11] LABS: AGAP 11; BUN 21 mg/dL (8-22); CALCIUM 8.7 mg/dL (8.8-10.2); CHLORIDE 104 mmol/L (98-107); COSMO 293; CREATININE 0.7 mg/dL (0.7-1.2); ESTIMATED GFR > 60; GLUCOSE 116 mg/dL (70-104); PHOSPHORUS 2.3 mg/dL (2.7-4.5); SODIUM 145 mmol/L (136-145); TCO2 30 mmol/L (25-35)
[2019-11-08 07:29] LABS: POTASSIUM 2.2 mmol/L (3.5-5.1)
[2019-11-08] MEDS ORDERED: KLOR-CON PO ONE ×2 (07:40→15:29)
[2019-11-08] MEDS: SPORANOX PO SCH ×2 (08:21→20:32)
[2019-11-08] MEDS: MAXIPIME 1 GM in NS 50 ML IV SCH ×2 (08:22→20:30)
[2019-11-08] MEDS: ASPIRIN PO SCH (08:23)
[2019-11-08] MEDS: LEVEMIR SUBQ SCH ×2 (08:23→20:33)
[2019-11-08] MEDS: PRINIVIL PO SCH (08:23)
[2019-11-08] MEDS: NORVASC PO SCH ×2 (08:23→20:32)
[2019-11-08] MEDS: APRESOLINE PO SCH ×3 (08:27→20:30)
[2019-11-08 10:44] LABS: INR 0.99; PROTIME 13.2 Seconds (11.0-16.0)
--- NOTE | 2019-11-08 15:37 | PROGRESS NOTE ---
DATE: 11/08/2019 SUBJECTIVE: The patient states that he feels much better today. No acute events noted overnight. OBJECTIVE: Vital Signs: Temperature 97.8 degrees, blood pressure 176/54, heart rate 50, respirations 17, O2 saturation 100% on room air. Intake 1.4 L. Output 1.6 L. General: This is a chronically ill-appearing elderly male lying in bed in no acute distress. Heart: S1, S2 normal. Bradycardic. Lungs: Clear to auscultation bilaterally. Abdomen: Positive bowel sounds. Soft, nontender, nondistended. Extremities: No edema. No cyanosis. Neurologic: The patient is alert and oriented x3. LABORATORY DATA: White blood cell count 7.7, hemoglobin 12, hematocrit 37, platelets 192,000. Sodium 145, potassium 2.2, chloride 104, CO2 30, BUN 21, creatinine 0.7, glucose 116, phosphorus 2.3, magnesium 2, LDL 61. ASSESSMENT AND PLAN: 1. Azi-EV-ayqtqhkch myocardial infarction. The patient had a heart catheterization yesterday. Medical management was recommended. Continue on the current cardiac medications. 2. Diabetic ketoacidosis. Resolved. 3. Insulin-dependent diabetes mellitus. The patient is on long-acting insulin at this time. Upon discharge, the patient will transition back to his insulin pump. 4. Upper respiratory infection. Improved. 5. Histoplasmosis. Continue on itraconazole. 6. Uncontrolled hypertension. We will adjust the patient's antihypertensive regimen. 7. Hypokalemia. We will replace the patient's potassium. 8. Physical therapy has been consulted. 9. Disposition. We will likely plan to discharge the patient home tomorrow. cc: Deirdre Murphy MD
[2019-11-09] MEDS: HUMULIN R SUBQ SCH ×3 (03:13→11:10)
[2019-11-09 07:14] LABS: AGAP 12; BUN 18 mg/dL (8-22); CALCIUM 8.5 mg/dL (8.8-10.2); CHLORIDE 98 mmol/L (98-107); COSMO 292; CREATININE 0.7 mg/dL (0.7-1.2); ESTIMATED GFR > 60; GLUCOSE 225 mg/dL (70-104); POTASSIUM 2.8 mmol/L (3.5-5.1); SODIUM 142 mmol/L (136-145); TCO2 32 mmol/L (25-35)
[2019-11-09] MEDS ORDERED: KLOR-CON PO ONE (07:23)
[2019-11-09 08:16] VITALS: BP 151/66
[2019-11-09] MEDS: PROTONIX IV SCH (09:14)
[2019-11-09] MEDS: SPORANOX PO SCH (09:15)
[2019-11-09] MEDS: APRESOLINE PO SCH (09:16)
[2019-11-09] MEDS: PRINIVIL PO SCH (09:16)
[2019-11-09] MEDS: LEVEMIR SUBQ SCH (09:16)
[2019-11-09] MEDS: MAXIPIME 1 GM in NS 50 ML IV SCH (09:17)
[2019-11-09] MEDS: ASPIRIN PO SCH (09:17)
--- NOTE | 2019-11-14 10:40 | DISCHARGE SUMMARY ---
ADMISSION DATE: 11/06/2019 DISCHARGE DATE: 11/09/2019 FINAL DISCHARGE DIAGNOSES: 1. Ejl-YY-cyvalfyzs myocardial infarction. 2. Diabetic ketoacidosis. 3. Insulin-dependent diabetes mellitus. 4. Upper respiratory infection. 5. Histoplasmosis on itraconazole therapy. 6. Hypertension. 7. Hypokalemia. 8. Benign prostatic hypertrophy. CONSULTATIONS: Cardiology consultation with Dr. Orozco. PROCEDURES: Cardiac catheterization performed on 11/07/2019, which revealed a 40 to 50 percent proximal lesion in the right coronary. 20 to 30 percent lesion in the mid vessel. As well as a 40 to 50 percent lesion at the takeoff of a 2nd diagonal branch involving the in left anterior descending. IMAGIN. Chest x-ray which revealed low lung volumes. 2. Echocardiogram which revealed an ejection fraction of 60% with no segmental wall motion abnormalities. Severe left atrial enlargement. HOSPITAL COURSE: Mr. Villalobos is a 64-year-old male with a history of histoplasmosis on itraconazole treatment, insulin-dependent diabetes with an insulin pump and hypertension who presented to the ER with general malaise. On admission, the patient was noted to be in DKA in his cardiac enzymes were also noted to be elevated. The patient was admitted to [facility] and started on DKA protocol to include IV fluids and an insulin drip. The patient was maintained on the protocol overnight and by the morning, his anion gap had closed, and he was transitioned to subcutaneous insulin. The patient's itraconazole was continued as well. It was also noted that the patient's blood pressure was very difficult to control. His troponins continued to rise, although the patient denied any chest pain. In light of the elevated troponin cardiology was consulted. An echocardiogram was done that revealed severe left atrial enlargement, but no wall motion abnormality was seen. The patient was taken to the tin can laborer on 11/07/2019. It was recommended by the clerk manager that since the patient did not have any significant flow-limiting lesions requiring intervention that the patient be treated medically. The patient continued to improve clinically. He was seen by physical therapy and was able to ambulate without any difficulty. Also home health services were set up for the patient prior to discharge. The patient continued to improve clinically and he was ultimately cleared for discharge home on 11/09/2019. DISCHARGE MEDICATIONS: 1. Lisinopril 40 mg oral daily. 2. Aspirin 81 mg oral daily. 3. Augmentin 500/125 one tab oral twice a day. 4. Hydralazine 75 mg oral every 8 hours. 5. Gabapentin 300 mg oral daily. 6. Itraconazole 200 mg oral twice a day. 7. Klor-Con 20 mEq oral twice a day. 8. Chlorthalidone 50 mg oral daily. 9. Subcutaneous insulin pump as directed. DISCHARGE DIET: 1800 ADA diet, low-sodium diet. DISCHARGE INSTRUCTIONS: The patient will need to follow up with Dr. Bautista on 11/12/2019. The patient will need to follow up with Dr. Orozco on 12/10/2019 at 10 a.m. The patient will need to follow up with Dr. Willie Stephenson in 1 to 2 weeks. cc: MD Jerman Krause MD Bobby M Johnson, MD MTDD
== END 2019-11-09 12:16 | disposition home health service (06) | DRG 280 ==
LOC: ED 15:13 → EDIPHOLD 19:32 → 2N 21:20
PROVIDERS: ATTEND Internal Medicine